=== PATIENT | male | born 1935 | race Caucasian/White ===

== ENCOUNTER 2019-04-28 09:01 | Inpatient (IN) ==
[2019-04-28] MEDS ORDERED: ONDANSETRON 4 MG/2 ML VIAL IV PRN (12:33)
[2019-04-28] MEDS ORDERED: ACETAMINOPHEN 325 MG TABLET PO PRN (12:33)
[2019-04-28] MEDS ORDERED: DOCUSATE SODIUM 100 MG CAPSULE PO PRN (12:33)
[2019-04-28] MEDS ORDERED: ALBUTEROL/IPRATROPIUM 3 ML NEB RESP TX PRN (12:33)
[2019-04-28 13:48] LABS: Risk Ratio 3.58; Thyroid Stimulating Hormone 2.06 uIU/ml (0.358-3.74); VLDL CHOLESTEROL 15.4 MG/DL
[2019-04-28] MEDS ORDERED: FUROSEMIDE 40 MG/4 ML VIAL IV ONE (14:14)
[2019-04-28 14:15] LABS: Troponin I < 0.015 NG/ML (0.00-0.045)
[2019-04-28] MEDS ORDERED: LIDOCAINE 1% 20 ML VIAL MISC INJ ONE (15:01)
[2019-04-28 15:38] LABS: Apearance,Urine CLEAR (Clear); Bilirubin,Urine Negative (Negative); Blood, Urine Negative (Negative); Glucose,Urine (UA) Negative (Negative); Ketones,Urine 5 mg/dL (Negative); Mucus,Urine Occasional /LPF (Occasional); Nitrite,Urine Negative (Negative); Protein,Urine Negative; RBC,Urine 1 /HPF (0-4); Squamous Epithelial Cell,Urine Occasional /HPF (0-10); Urine Color Yellow (Yellow); Urine Specific Gravity > 1.060 (1.001-1.035); Urine Urobilinogen < 2.0 EU/DL (0.2-1.0); WBC,Urine <1 /HPF (0-6)
[2019-04-28] MEDS: MONTELUKAST 10 MG TABLET PO SCH (17:01)
[2019-04-28] MEDS: CLINDAMYCIN INJ 300 MG in PREMIX 1 EACH IV SCH ×2 (18:11→22:46)
[2019-04-28 18:33] LABS: Total Protein,Body Fluid 3.9 G/DL
[2019-04-28] MEDS: PIPERACILLIN/TAZOBACTAM 3,375 MG in SODIUM CHLORIDE 0.9% 100 ML IV SCH (18:49)
[2019-04-28 18:51] LABS: Eosinophils,Pleural Fluid 6 %; Lymphocytes,Pleural Fluid 80 %; Monocytes,Pleural Fluid 2 %; Neutrophils,Pleural Fluid 12 %
[2019-04-28 18:53] LABS: RBC,Pleural Fluid 800 T/CUMM
[2019-04-28] MEDS: ALBUTEROL/IPRATROPIUM 3 ML NEB RESP TX SCH (19:30)
[2019-04-28] MEDS: BUDESONIDE/FORMOTEROL 160-4.5 INHALER 6 GM INH SCH (20:22)
[2019-04-29] MEDS: ALBUTEROL/IPRATROPIUM 3 ML NEB RESP TX SCH ×4 (01:25→19:30)
[2019-04-29] MEDS: PIPERACILLIN/TAZOBACTAM 3,375 MG in SODIUM CHLORIDE 0.9% 100 ML IV SCH ×3 (03:00→18:17)
[2019-04-29 05:40] LABS: Basophils # 0.1 10*3/uL (0.0-0.2); Basophils % 0.5 % (0.0-0.8); Eosinophils # 0.2 10*3/uL (0.0-0.87); Eosinophils % 1.6 % (0.00-10.9); Hematocrit 38.5 VOL% (42.0-52.0); Hemoglobin 12.4 GM/DL (14.0-18.0); Immature Granulocytes % 2.1 %; Immature Granulocytes Absolute 0.29 #; Lymphocytes # 1.6 10*3/uL (1.4-4.0); Lymphocytes % 11.6 % (21.2-54.2); Mean Corpuscular HGB Conc 32.2 GM/DL (32-36); Mean Corpuscular Volume 86.5 FL (87-102); Mean Platelet Volume 9.4 FL (9.6-12.0); Monocytes % 9.9 % (1.7-12.7); Neutrophils % 74.3 % (38.7-73.9); Platelet Count 497 T/CUMM (130-400); Red Blood Count 4.45 MC/CUMM (3.8-5.5); Red Cell Distribution Width 13.7 % (9.3-17.3)
[2019-04-29 06:07] LABS: Calcium 8.7 MG/DL (8.5-10.1); Osmolality,Calculated 276.8 MOS/KG (273-304)
[2019-04-29 08:55] LABS: Total Protein 6.6 G/DL (6.4-8.3)
[2019-04-29] MEDS: BUDESONIDE/FORMOTEROL 160-4.5 INHALER 6 GM INH SCH (09:50)
[2019-04-29] MEDS: ASPIRIN EC 81 MG TABLET PO SCH (09:51)
[2019-04-29] MEDS: CLINDAMYCIN INJ 300 MG in PREMIX 1 EACH IV SCH ×3 (09:51→22:25)
[2019-04-29] MEDS: MONTELUKAST 10 MG TABLET PO SCH (09:51)
[2019-04-29] MEDS: PANTOPRAZOLE 40 MG TABLET PO SCH (09:51)
[2019-04-29] MEDS: amLODIPine 10 MG TABLET PO SCH (09:51)
[2019-04-29] MEDS: METOPROLOL TARTRATE 25 MG TABLET PO SCH ×2 (12:08→21:33)
[2019-04-29] MEDS: ENOXAPARIN 30 MG/0.3 ML SYRINGE SUBCUT SCH (14:35)
[2019-04-29 16:59] LABS: Troponin I < 0.015 NG/ML (0.00-0.045)
[2019-04-30] MEDS: ALBUTEROL/IPRATROPIUM 3 ML NEB RESP TX SCH ×4 (00:11→19:53)
[2019-04-30] MEDS: CLINDAMYCIN INJ 300 MG in PREMIX 1 EACH IV SCH ×4 (03:00→23:00)
[2019-04-30] MEDS: PIPERACILLIN/TAZOBACTAM 3,375 MG in SODIUM CHLORIDE 0.9% 100 ML IV SCH ×3 (03:30→18:57)
[2019-04-30 04:25] LABS: Basophils # 0.1 10*3/uL (0.0-0.2); Basophils % 0.6 % (0.0-0.8); Eosinophils # 0.5 10*3/uL (0.0-0.87); Eosinophils % 3.4 % (0.00-10.9); Hematocrit 36.6 VOL% (42.0-52.0); Hemoglobin 11.5 GM/DL (14.0-18.0); Immature Granulocytes % 2.8 %; Immature Granulocytes Absolute 0.37 #; Lymphocytes # 1.9 10*3/uL (1.4-4.0); Lymphocytes % 13.9 % (21.2-54.2); Mean Corpuscular HGB Conc 31.4 GM/DL (32-36); Mean Corpuscular Volume 86.7 FL (87-102); Mean Platelet Volume 9.9 FL (9.6-12.0); Monocytes % 10.5 % (1.7-12.7); Neutrophils % 68.8 % (38.7-73.9); Platelet Count 520 T/CUMM (130-400); Red Blood Count 4.22 MC/CUMM (3.8-5.5); Red Cell Distribution Width 13.7 % (9.3-17.3); White Blood Count 13.4 T/CUMM (4-12)
[2019-04-30 04:42] LABS: Calcium 8.4 MG/DL (8.5-10.1); Osmolality,Calculated 276.8 MOS/KG (273-304)
[2019-04-30] MEDS: BUDESONIDE/FORMOTEROL 160-4.5 INHALER 6 GM INH SCH ×4 (05:12→21:35)
[2019-04-30] MEDS: METOPROLOL TARTRATE 25 MG TABLET PO SCH ×2 (08:20→21:39)
[2019-04-30] MEDS: ASPIRIN EC 81 MG TABLET PO SCH (08:20)
[2019-04-30] MEDS: amLODIPine 10 MG TABLET PO SCH (08:20)
[2019-04-30] MEDS: PANTOPRAZOLE 40 MG TABLET PO SCH (08:20)
[2019-04-30] MEDS: MONTELUKAST 10 MG TABLET PO SCH (08:20)
[2019-04-30] MEDS: ENOXAPARIN 30 MG/0.3 ML SYRINGE SUBCUT SCH (14:40)
[2019-05-01] MEDS: ALBUTEROL/IPRATROPIUM 3 ML NEB RESP TX SCH ×4 (00:51→19:20)
[2019-05-01] MEDS: CLINDAMYCIN INJ 300 MG in PREMIX 1 EACH IV SCH ×4 (02:45→22:35)
[2019-05-01] MEDS: PIPERACILLIN/TAZOBACTAM 3,375 MG in SODIUM CHLORIDE 0.9% 100 ML IV SCH ×3 (03:15→18:34)
[2019-05-01 05:16] LABS: Basophils # 0.1 10*3/uL (0.0-0.2); Basophils % 0.7 % (0.0-0.8); Eosinophils # 0.4 10*3/uL (0.0-0.87); Eosinophils % 3.5 % (0.00-10.9); Hematocrit 38.2 VOL% (42.0-52.0); Hemoglobin 12.4 GM/DL (14.0-18.0); Immature Granulocytes % 3.4 %; Immature Granulocytes Absolute 0.42 #; Lymphocytes # 1.8 10*3/uL (1.4-4.0); Lymphocytes % 14.4 % (21.2-54.2); Mean Corpuscular HGB Conc 32.5 GM/DL (32-36); Mean Platelet Volume 9.4 FL (9.6-12.0); Monocytes % 10.3 % (1.7-12.7); Neutrophils % 67.7 % (38.7-73.9); Platelet Count 520 T/CUMM (130-400); Red Blood Count 4.44 MC/CUMM (3.8-5.5); Red Cell Distribution Width 13.6 % (9.3-17.3); White Blood Count 12.4 T/CUMM (4-12)
[2019-05-01 05:35] LABS: Calcium 8.7 MG/DL (8.5-10.1)
[2019-05-01] MEDS: METOPROLOL TARTRATE 25 MG TABLET PO SCH ×2 (09:26→21:52)
[2019-05-01] MEDS: MONTELUKAST 10 MG TABLET PO SCH (09:26)
[2019-05-01] MEDS: amLODIPine 10 MG TABLET PO SCH (09:26)
[2019-05-01] MEDS: ASPIRIN EC 81 MG TABLET PO SCH (09:26)
[2019-05-01] MEDS: PANTOPRAZOLE 40 MG TABLET PO SCH (09:26)
[2019-05-01] MEDS: ENOXAPARIN 30 MG/0.3 ML SYRINGE SUBCUT SCH (14:32)
[2019-05-01] MEDS: BUDESONIDE/FORMOTEROL 160-4.5 INHALER 6 GM INH SCH (21:53)
[2019-05-02] MEDS: ALBUTEROL/IPRATROPIUM 3 ML NEB RESP TX SCH ×4 (00:10→19:29)
[2019-05-02] MEDS: CLINDAMYCIN INJ 300 MG in PREMIX 1 EACH IV SCH ×4 (02:35→22:32)
[2019-05-02] MEDS: PIPERACILLIN/TAZOBACTAM 3,375 MG in SODIUM CHLORIDE 0.9% 100 ML IV SCH ×3 (03:41→18:27)
[2019-05-02] MEDS: PANTOPRAZOLE 40 MG TABLET PO SCH (08:39)
[2019-05-02] MEDS: amLODIPine 10 MG TABLET PO SCH (08:39)
[2019-05-02] MEDS: ASPIRIN EC 81 MG TABLET PO SCH (08:39)
[2019-05-02] MEDS: MONTELUKAST 10 MG TABLET PO SCH (08:39)
[2019-05-02] MEDS: METOPROLOL TARTRATE 25 MG TABLET PO SCH ×2 (08:39→20:43)
[2019-05-02] MEDS: BUDESONIDE/FORMOTEROL 160-4.5 INHALER 6 GM INH SCH ×2 (10:27→20:44)
[2019-05-02] MEDS: ALBUTEROL 0.4 MG/ML 30 ML/BOTTLE PO SCH ×2 (11:34→20:42)
[2019-05-02 13:21] LABS: Mycoplasma pneumoniae Ab, IgG Positive (Negative); Mycoplasma pneumoniae Ab, IgM Reactive (Negative)
[2019-05-02] MEDS: ENOXAPARIN 40 MG/0.4 ML SYRINGE SUBCUT SCH (14:42)
[2019-05-03] MEDS: ALBUTEROL/IPRATROPIUM 3 ML NEB RESP TX SCH ×4 (00:20→19:28)
[2019-05-03] MEDS: CLINDAMYCIN INJ 300 MG in PREMIX 1 EACH IV SCH ×4 (02:38→20:38)
[2019-05-03] MEDS: PIPERACILLIN/TAZOBACTAM 3,375 MG in SODIUM CHLORIDE 0.9% 100 ML IV SCH ×3 (04:30→19:44)
[2019-05-03 05:50] LABS: Basophils # 0.1 10*3/uL (0.0-0.2); Basophils % 0.6 % (0.0-0.8); Eosinophils # 0.3 10*3/uL (0.0-0.87); Eosinophils % 2.3 % (0.00-10.9); Hematocrit 37.5 VOL% (42.0-52.0); Immature Granulocytes % 2.8 %; Immature Granulocytes Absolute 0.34 #; Lymphocytes # 1.4 10*3/uL (1.4-4.0); Lymphocytes % 11.5 % (21.2-54.2); Mean Corpuscular Volume 86.2 FL (87-102); Mean Platelet Volume 9.1 FL (9.6-12.0); Monocytes % 11.1 % (1.7-12.7); Neutrophils % 71.7 % (38.7-73.9); Platelet Count 499 T/CUMM (130-400); Red Blood Count 4.35 MC/CUMM (3.8-5.5); Red Cell Distribution Width 13.5 % (9.3-17.3)
[2019-05-03 06:00] LABS: PT Patient Result 10.5 SECS (9.6-12.2); Partial Thromboplastin Time 27.8 SECS (20.8-36.0)
[2019-05-03 06:14] LABS: Calcium 8.6 MG/DL (8.5-10.1); Osmolality,Calculated 274.7 MOS/KG (273-304)
[2019-05-03] MEDS ORDERED: diphenhydrAMINE 50 MG/1 ML VIAL IM ONE (08:00)
[2019-05-03] MEDS ORDERED: BENZONATATE 100 MG CAPSULE PO ONE (08:00)
[2019-05-03] MEDS ORDERED: MEPERIDINE 50 MG/1 ML VIAL IM ONE (08:00)
[2019-05-03] MEDS ORDERED: LIDOCAINE 1% 20 ML VIAL MISC INJ ONE (08:30)
[2019-05-03] MEDS ORDERED: LIDOCAINE 2% VISCOUS 100 ML BOTTLE SWISH/SPIT ONE (08:30)
[2019-05-03] MEDS ORDERED: LIDOCAINE 2% 20 ML VIAL RESP TX ONE (08:30)
[2019-05-03] MEDS: AZITHROMYCIN 250 MG TABLET PO SCH (13:40)
[2019-05-03] MEDS: ASPIRIN EC 81 MG TABLET PO SCH (13:40)
[2019-05-03] MEDS: METOPROLOL TARTRATE 25 MG TABLET PO SCH ×2 (13:40→21:14)
[2019-05-03] MEDS: MONTELUKAST 10 MG TABLET PO SCH (13:41)
[2019-05-03] MEDS: amLODIPine 10 MG TABLET PO SCH (13:41)
[2019-05-03] MEDS: PANTOPRAZOLE 40 MG TABLET PO SCH (13:41)
[2019-05-03] MEDS: ALBUTEROL 0.4 MG/ML 30 ML/BOTTLE PO SCH ×2 (13:43→21:15)
[2019-05-03] MEDS: BUDESONIDE/FORMOTEROL 160-4.5 INHALER 6 GM INH SCH ×2 (13:46→21:15)
[2019-05-03] MEDS: ENOXAPARIN 40 MG/0.4 ML SYRINGE SUBCUT SCH (16:45)
[2019-05-04] MEDS: CLINDAMYCIN INJ 300 MG in PREMIX 1 EACH IV SCH ×4 (01:17→21:50)
[2019-05-04] MEDS: PIPERACILLIN/TAZOBACTAM 3,375 MG in SODIUM CHLORIDE 0.9% 100 ML IV SCH ×3 (01:53→18:19)
[2019-05-04] MEDS: ALBUTEROL/IPRATROPIUM 3 ML NEB RESP TX SCH ×4 (02:24→19:59)
[2019-05-04 05:07] LABS: Basophils # 0.1 10*3/uL (0.0-0.2); Basophils % 0.5 % (0.0-0.8); Eosinophils # 0.2 10*3/uL (0.0-0.87); Eosinophils % 1.7 % (0.00-10.9); Hematocrit 38.7 VOL% (42.0-52.0); Hemoglobin 12.3 GM/DL (14.0-18.0); Immature Granulocytes % 2.2 %; Immature Granulocytes Absolute 0.29 #; Lymphocytes # 1.6 10*3/uL (1.4-4.0); Lymphocytes % 12.3 % (21.2-54.2); Mean Corpuscular HGB Conc 31.8 GM/DL (32-36); Mean Corpuscular Volume 86.4 FL (87-102); Mean Platelet Volume 9.5 FL (9.6-12.0); Monocytes % 9.4 % (1.7-12.7); Neutrophils % 73.9 % (38.7-73.9); Platelet Count 542 T/CUMM (130-400); Red Blood Count 4.48 MC/CUMM (3.8-5.5); Red Cell Distribution Width 13.6 % (9.3-17.3); White Blood Count 13.1 T/CUMM (4-12)
[2019-05-04 05:32] LABS: Calcium 8.1 MG/DL (8.5-10.1); Osmolality,Calculated 268.2 MOS/KG (273-304)
[2019-05-04] MEDS: PANTOPRAZOLE 40 MG TABLET PO SCH (08:31)
[2019-05-04] MEDS: amLODIPine 10 MG TABLET PO SCH (08:31)
[2019-05-04] MEDS: MONTELUKAST 10 MG TABLET PO SCH (08:31)
[2019-05-04] MEDS: ASPIRIN EC 81 MG TABLET PO SCH (08:31)
[2019-05-04] MEDS: METOPROLOL TARTRATE 25 MG TABLET PO SCH ×2 (08:31→20:57)
[2019-05-04] MEDS: ALBUTEROL 0.4 MG/ML 30 ML/BOTTLE PO SCH ×2 (08:32→20:57)
[2019-05-04] MEDS: BUDESONIDE/FORMOTEROL 160-4.5 INHALER 6 GM INH SCH ×2 (10:25→20:57)
[2019-05-04] MEDS: ENOXAPARIN 40 MG/0.4 ML SYRINGE SUBCUT SCH (14:48)
[2019-05-05] MEDS: CLINDAMYCIN INJ 300 MG in PREMIX 1 EACH IV SCH ×2 (01:18→08:27)
[2019-05-05] MEDS: ALBUTEROL/IPRATROPIUM 3 ML NEB RESP TX SCH (01:42)
[2019-05-05] MEDS: PIPERACILLIN/TAZOBACTAM 3,375 MG in SODIUM CHLORIDE 0.9% 100 ML IV SCH (01:58)
[2019-05-05] MEDS: BUDESONIDE/FORMOTEROL 160-4.5 INHALER 6 GM INH SCH (08:27)
[2019-05-05] MEDS: ALBUTEROL 0.4 MG/ML 30 ML/BOTTLE PO SCH (08:27)
[2019-05-05] MEDS: AZITHROMYCIN 250 MG TABLET PO SCH (08:28)
[2019-05-05] MEDS: PANTOPRAZOLE 40 MG TABLET PO SCH (08:28)
[2019-05-05] MEDS: MONTELUKAST 10 MG TABLET PO SCH (08:28)
[2019-05-05] MEDS: amLODIPine 10 MG TABLET PO SCH (08:28)
[2019-05-05] MEDS: ASPIRIN EC 81 MG TABLET PO SCH (08:28)
[2019-05-05] MEDS: METOPROLOL TARTRATE 25 MG TABLET PO SCH (08:28)
[2019-05-05 11:30] VITALS: BP 113/67
== END 2019-05-05 12:05 | disposition home health service (06) ==
LOC: N.5E 10:53 → SUATTDRO 10:53 → N.TELEN 04-29 12:40
PROVIDERS: ADMIT Internal Medicine; ATTEND Internal Medicine

== ENCOUNTER 2021-04-27 17:56 | Inpatient (IN) ==
[2021-04-27] MEDS ORDERED: methylPREDNISolone SOD SUC 125 MG/2 ML VIAL IV STA (18:40)
[2021-04-27] MEDS ORDERED: MORPHINE 2 MG/1 ML SYRINGE IV STA (18:40)
[2021-04-27] MEDS ORDERED: FUROSEMIDE 100 MG/10 ML VIAL IV STA (18:40)
[2021-04-27 18:52] LABS: Basophils # 0.1 10*3/uL (0.0-0.2); Basophils % 0.6 % (0.0-0.8); Eosinophils # 0.3 10*3/uL (0.0-0.87); Hematocrit 40.6 VOL% (42.0-52.0); Hemoglobin 13.4 GM/DL (14.0-18.0); Immature Granulocytes % 1.7 %; Immature Granulocytes Absolute 0.21 #; Lymphocytes # 0.9 10*3/uL (1.4-4.0); Lymphocytes % 7.4 % (21.2-54.2); Mean Corpuscular Volume 92.3 FL (87-102); Mean Platelet Volume 9.4 FL (9.6-12.0); Monocytes % 8.5 % (1.7-12.7); Neutrophils % 79.8 % (38.7-73.9); Platelet Count 331 T/CUMM (130-400); Red Cell Distribution Width 13.8 % (9.3-17.3); White Blood Count 12.4 T/CUMM (4-12)
[2021-04-27 19:00] LABS: INR 1.1; PT Patient Result 12.1 SECS (10.5-12.0)
[2021-04-27] MEDS ORDERED: ALBUTEROL NEB SOLN 5 MG/ML 20 ML/BOTTLE CONT NEB SCH (19:00)
[2021-04-27 19:06] LABS: ABG Base Excess 0.5 MMOL/L (-2.5-2.5); ABG HCO3 24.8 MMOL/L (20-26); ABG Oxygen Saturation 92.3 % (95-100); ABG PCO2 27.4 MM HG (35-48); ABG PH 7.517 (7.35-7.45); ABG PO2 62.6 MM HG (80-95); ABG TCO2 19.3 MMOL/L (23-27)
[2021-04-27 19:16] LABS: Alanine Aminotransferase 66 U/L (16-61); Albumin 2.5 G/DL (3.4-5.0); Alkaline Phosphatase 70 U/L (45-117); Aspartate Amino Transferase 40 U/L (0-37); Blood Urea Nitrogen 26 MG/DL (7-18); Calcium 9.4 MG/DL (8.5-10.1); Carbon Dioxide 23 MMOL/L (21-32); Estimated Glom Filtration Rate 75 ML/MIN; Glucose 155 MG/DL (74-106); Osmolality,Calculated 286.4 MOS/KG (273-304); Potassium 3.8 MMOL/L (3.5-5.1); Sodium 140 MMOL/L (136-145); Total Protein 6.4 G/DL (6.4-8.2)
[2021-04-27 20:03] LABS: Bilirubin,Urine Negative (Negative); Blood, Urine Negative (Negative); Glucose,Urine (UA) Negative (Negative); Hyaline Casts,Urine 3 /LPF (0-3); Ketones,Urine Negative (Negative); Mucus,Urine Occasional /LPF (Occasional); Nitrite,Urine Negative (Negative); Protein,Urine Negative; Urine Appearance CLEAR (Clear); Urine Color Yellow (Yellow); Urine Specific Gravity 1.013 (1.001-1.035); Urine Urobilinogen < 2.0 EU/DL (0.2-1.0)
[2021-04-27] MEDS ORDERED: DEXTROSE 50% 25 GM/50 ML VIAL IV PRN ×2 (20:52)
[2021-04-27] MEDS ORDERED: ACETAMINOPHEN 325 MG TABLET PO PRN (20:52)
[2021-04-27] MEDS ORDERED: ONDANSETRON 4 MG/2 ML VIAL IV PRN (20:52)
[2021-04-27] MEDS ORDERED: GLUCAGON 1 MG VIAL IM PRN (20:52)
[2021-04-27] MEDS ORDERED: MORPHINE 2 MG/1 ML SYRINGE IV PRN (20:52)
[2021-04-27] MEDS: cefTRIAXone 1,000 MG in SODIUM CHLORIDE 0.9% 100 ML IV SCH (21:17)
[2021-04-27] MEDS: INSULIN REGULAR 100 UNIT/ML SUBCUT SCH (21:18)
[2021-04-27] MEDS: AZITHROMYCIN INJ 500 MG in SODIUM CHLORIDE 0.9% 250 ML IV SCH (22:36)
[2021-04-28] MEDS ORDERED: methylPREDNISolone SOD SUC 40 MG/1 ML VIAL ONE (00:22)
[2021-04-28] MEDS: methylPREDNISolone SOD SUC 40 MG/1 ML VIAL IV SCH ×3 (01:15→18:01)
[2021-04-28] MEDS: ALBUTEROL/IPRATROPIUM 3 ML NEB RESP TX SCH ×4 (05:19→20:05)
[2021-04-28 07:19] LABS: Basophils % 0.1 % (0.0-0.8); Hematocrit 40.3 VOL% (42.0-52.0); Immature Granulocytes % 1.2 %; Immature Granulocytes Absolute 0.12 #; Lymphocytes # 0.6 10*3/uL (1.4-4.0); Lymphocytes % 6.3 % (21.2-54.2); Mean Corpuscular HGB Conc 32.3 GM/DL (32-36); Mean Platelet Volume 9.3 FL (9.6-12.0); Monocytes % 2.3 % (1.7-12.7); Neutrophils % 90.1 % (38.7-73.9); Platelet Count 343 T/CUMM (130-400); Red Blood Count 4.38 MC/CUMM (3.8-5.5); Red Cell Distribution Width 13.6 % (9.3-17.3)
[2021-04-28] MEDS: INSULIN REGULAR 100 UNIT/ML SUBCUT SCH ×4 (07:57→20:21)
[2021-04-28 08:06] LABS: Albumin 2.4 G/DL (3.4-5.0); Bilirubin,Total 0.6 MG/DL (0.20-1.00); Calcium 8.9 MG/DL (8.5-10.1); Osmolality,Calculated 288.3 MOS/KG (273-304); Potassium 3.4 MMOL/L (3.5-5.1); Risk Ratio 2.81; Total Protein 6.6 G/DL (6.4-8.2); VLDL Cholesterol 11.4 MG/DL
[2021-04-28] MEDS: FAMOTIDINE 20 MG TABLET PO SCH (08:40)
[2021-04-28] MEDS: GABAPENTIN 100 MG CAPSULE PO SCH ×2 (08:40→20:21)
[2021-04-28] MEDS: CHOLECALCIFEROL 5,000 UNIT TABLET PO SCH (08:40)
[2021-04-28] MEDS: hydroCHLOROthiazide 25 MG TABLET PO SCH (08:40)
[2021-04-28] MEDS: MULTIVITAMIN (CENTRUM) TABLET PO SCH (08:40)
[2021-04-28] MEDS: ASPIRIN EC 81 MG TABLET PO SCH (08:40)
[2021-04-28] MEDS: ROSUVASTATIN 20 MG TABLET PO SCH (08:40)
[2021-04-28] MEDS: MONTELUKAST 10 MG TABLET PO SCH (08:41)
[2021-04-28] MEDS: carvediloL 25 MG TABLET PO SCH ×2 (08:41→20:21)
[2021-04-28] MEDS: SACUBITRIL/VALSARTAN 49-51 MG TABLET PO SCH ×2 (08:41→20:21)
[2021-04-28] MEDS: PANTOPRAZOLE 40 MG TABLET PO SCH (08:41)
[2021-04-28] MEDS: BUDESONIDE/FORMOTEROL 160-4.5 INHALER 6 GM INH SCH ×2 (08:43→20:22)
[2021-04-28] MEDS ORDERED: POTASSIUM CHLORIDE 20 MEQ TABLET PO ONE (12:31)
[2021-04-28] MEDS: FUROSEMIDE 20 MG/2 ML VIAL IV SCH (16:12)
[2021-04-28] MEDS: ENOXAPARIN 40 MG/0.4 ML SYRINGE SUBCUT SCH (18:01)
[2021-04-28] MEDS: TAMSULOSIN 0.4 MG CAPSULE PO SCH (20:21)
[2021-04-28] MEDS: cefTRIAXone 1,000 MG in SODIUM CHLORIDE 0.9% 100 ML IV SCH (20:22)
[2021-04-28] MEDS: AZITHROMYCIN INJ 500 MG in SODIUM CHLORIDE 0.9% 250 ML IV SCH (21:10)
[2021-04-29] MEDS: ALBUTEROL/IPRATROPIUM 3 ML NEB RESP TX SCH ×5 (01:45→19:15)
[2021-04-29] MEDS: methylPREDNISolone SOD SUC 40 MG/1 ML VIAL IV SCH ×3 (02:24→18:11)
[2021-04-29 05:50] LABS: Basophils % 0.1 % (0.0-0.8); Hematocrit 39.5 VOL% (42.0-52.0); Hemoglobin 12.9 GM/DL (14.0-18.0); Immature Granulocytes % 1.3 %; Immature Granulocytes Absolute 0.27 #; Lymphocytes # 0.8 10*3/uL (1.4-4.0); Lymphocytes % 3.9 % (21.2-54.2); Mean Corpuscular HGB Conc 32.7 GM/DL (32-36); Mean Corpuscular Volume 91.4 FL (87-102); Mean Platelet Volume 9.3 FL (9.6-12.0); Monocytes % 3.2 % (1.7-12.7); Neutrophils % 91.5 % (38.7-73.9); Platelet Count 357 T/CUMM (130-400); Red Blood Count 4.32 MC/CUMM (3.8-5.5); Red Cell Distribution Width 13.3 % (9.3-17.3); White Blood Count 20.5 T/CUMM (4-12)
[2021-04-29 06:18] LABS: Lymphocytes 6 % (20-55); Platelet Estimate Normal; Segmented Neutrophils 90 % (50-85); Total Cells Counted 100
[2021-04-29 06:30] LABS: Calcium 8.7 MG/DL (8.5-10.1); Osmolality,Calculated 285.7 MOS/KG (273-304)
[2021-04-29] MEDS ORDERED: POTASSIUM CHLORIDE 20 MEQ TABLET PO ONE (07:36)
[2021-04-29] MEDS: INSULIN REGULAR 100 UNIT/ML SUBCUT SCH ×4 (07:42→21:20)
[2021-04-29] MEDS: SACUBITRIL/VALSARTAN 49-51 MG TABLET PO SCH ×2 (08:41→21:20)
[2021-04-29] MEDS: CHOLECALCIFEROL 5,000 UNIT TABLET PO SCH (08:42)
[2021-04-29] MEDS: ROSUVASTATIN 20 MG TABLET PO SCH (08:42)
[2021-04-29] MEDS: PANTOPRAZOLE 40 MG TABLET PO SCH (08:42)
[2021-04-29] MEDS: MONTELUKAST 10 MG TABLET PO SCH (08:42)
[2021-04-29] MEDS: FAMOTIDINE 20 MG TABLET PO SCH (08:42)
[2021-04-29] MEDS: MULTIVITAMIN (CENTRUM) TABLET PO SCH (08:42)
[2021-04-29] MEDS: carvediloL 25 MG TABLET PO SCH ×2 (08:42→21:20)
[2021-04-29] MEDS: ASPIRIN EC 81 MG TABLET PO SCH (08:42)
[2021-04-29] MEDS: BUDESONIDE/FORMOTEROL 160-4.5 INHALER 6 GM INH SCH ×2 (08:43→21:20)
[2021-04-29] MEDS: FUROSEMIDE 20 MG/2 ML VIAL IV SCH ×2 (08:43→16:23)
[2021-04-29] MEDS: GABAPENTIN 100 MG CAPSULE PO SCH ×2 (08:43→21:20)
[2021-04-29] MEDS: hydroCHLOROthiazide 25 MG TABLET PO SCH (08:43)
[2021-04-29] MEDS: ENOXAPARIN 40 MG/0.4 ML SYRINGE SUBCUT SCH (18:11)
[2021-04-29] MEDS: ALBUTEROL 2 MG TABLET PO SCH (21:20)
[2021-04-29] MEDS: TAMSULOSIN 0.4 MG CAPSULE PO SCH (21:20)
[2021-04-29] MEDS: cefTRIAXone 1,000 MG in SODIUM CHLORIDE 0.9% 100 ML IV SCH (21:20)
[2021-04-29] MEDS: AZITHROMYCIN INJ 500 MG in SODIUM CHLORIDE 0.9% 250 ML IV SCH (22:05)
[2021-04-30] MEDS: ALBUTEROL/IPRATROPIUM 3 ML NEB RESP TX SCH ×4 (01:50→18:23)
[2021-04-30] MEDS: methylPREDNISolone SOD SUC 40 MG/1 ML VIAL IV SCH ×2 (02:02→09:20)
[2021-04-30 05:28] LABS: Basophils % 0.2 % (0.0-0.8); Hematocrit 40.5 VOL% (42.0-52.0); Hemoglobin 13.6 GM/DL (14.0-18.0); Immature Granulocytes % 1.6 %; Immature Granulocytes Absolute 0.32 #; Lymphocytes # 0.7 10*3/uL (1.4-4.0); Lymphocytes % 3.6 % (21.2-54.2); Mean Corpuscular HGB Conc 33.6 GM/DL (32-36); Mean Corpuscular Volume 91.2 FL (87-102); Mean Platelet Volume 9.5 FL (9.6-12.0); Monocytes % 2.9 % (1.7-12.7); Neutrophils % 91.7 % (38.7-73.9); Platelet Count 351 T/CUMM (130-400); Red Blood Count 4.44 MC/CUMM (3.8-5.5); Red Cell Distribution Width 13.4 % (9.3-17.3); White Blood Count 19.9 T/CUMM (4-12)
[2021-04-30 05:37] LABS: Calcium 8.6 MG/DL (8.5-10.1); Osmolality,Calculated 286.8 MOS/KG (273-304); Potassium 3.3 MMOL/L (3.5-5.1)
[2021-04-30 06:04] LABS: Band Neutrophils 1 % (0-10); Lymphocytes 2 % (20-55); Microcytosis 1+; Segmented Neutrophils 92 % (50-85); Total Cells Counted 100
[2021-04-30 06:05] LABS: Hypochromasia 1+
[2021-04-30] MEDS: INSULIN REGULAR 100 UNIT/ML SUBCUT SCH ×3 (07:10→16:01)
[2021-04-30] MEDS ORDERED: POTASSIUM CHLORIDE 20 MEQ TABLET PO ONE (07:47)
[2021-04-30] MEDS: MULTIVITAMIN (CENTRUM) TABLET PO SCH (08:37)
[2021-04-30] MEDS: FAMOTIDINE 20 MG TABLET PO SCH (08:37)
[2021-04-30] MEDS: ROSUVASTATIN 20 MG TABLET PO SCH (08:37)
[2021-04-30] MEDS: SACUBITRIL/VALSARTAN 49-51 MG TABLET PO SCH ×2 (08:37→23:26)
[2021-04-30] MEDS: PANTOPRAZOLE 40 MG TABLET PO SCH (08:37)
[2021-04-30] MEDS: CHOLECALCIFEROL 5,000 UNIT TABLET PO SCH (08:38)
[2021-04-30] MEDS: MONTELUKAST 10 MG TABLET PO SCH (08:39)
[2021-04-30] MEDS: hydroCHLOROthiazide 25 MG TABLET PO SCH (08:39)
[2021-04-30] MEDS: ALBUTEROL 2 MG TABLET PO SCH ×2 (08:40→23:27)
[2021-04-30] MEDS: GABAPENTIN 100 MG CAPSULE PO SCH ×2 (08:40→23:27)
[2021-04-30] MEDS: ASPIRIN EC 81 MG TABLET PO SCH (08:41)
[2021-04-30] MEDS: carvediloL 25 MG TABLET PO SCH ×2 (08:41→23:27)
[2021-04-30] MEDS: BUDESONIDE/FORMOTEROL 160-4.5 INHALER 6 GM INH SCH (08:42)
[2021-04-30] MEDS: FUROSEMIDE 20 MG/2 ML VIAL IV SCH ×2 (08:42→16:01)
[2021-04-30] MEDS: POTASSIUM CHLORIDE 20 MEQ TABLET PO SCH (08:43)
[2021-04-30] MEDS: ENOXAPARIN 40 MG/0.4 ML SYRINGE SUBCUT SCH (18:08)
[2021-04-30] MEDS: cefTRIAXone 1,000 MG in SODIUM CHLORIDE 0.9% 100 ML IV SCH (23:27)
[2021-04-30] MEDS: TAMSULOSIN 0.4 MG CAPSULE PO SCH (23:27)
[2021-05-01] MEDS: AZITHROMYCIN INJ 500 MG in SODIUM CHLORIDE 0.9% 250 ML IV SCH (00:10)
[2021-05-01] MEDS: INSULIN REGULAR 100 UNIT/ML SUBCUT SCH ×3 (00:12→12:33)
[2021-05-01] MEDS: BUDESONIDE/FORMOTEROL 160-4.5 INHALER 6 GM INH SCH ×2 (00:47→09:35)
[2021-05-01] MEDS: ALBUTEROL/IPRATROPIUM 3 ML NEB RESP TX SCH ×2 (01:31→07:13)
[2021-05-01 05:50] LABS: Basophils % 0.2 % (0.0-0.8); Hematocrit 40.1 VOL% (42.0-52.0); Hemoglobin 13.1 GM/DL (14.0-18.0); Immature Granulocytes % 2.2 %; Lymphocytes # 1.1 10*3/uL (1.4-4.0); Lymphocytes % 5.9 % (21.2-54.2); Mean Corpuscular HGB Conc 32.7 GM/DL (32-36); Mean Corpuscular Volume 90.9 FL (87-102); Mean Platelet Volume 9.4 FL (9.6-12.0); Monocytes % 7.9 % (1.7-12.7); Neutrophils % 83.8 % (38.7-73.9); Platelet Count 345 T/CUMM (130-400); Red Blood Count 4.41 MC/CUMM (3.8-5.5); Red Cell Distribution Width 13.4 % (9.3-17.3); White Blood Count 17.8 T/CUMM (4-12)
[2021-05-01 06:11] LABS: Calcium 8.5 MG/DL (8.5-10.1); Osmolality,Calculated 289.5 MOS/KG (273-304); Potassium 3.5 MMOL/L (3.5-5.1)
[2021-05-01] MEDS ORDERED: methylPREDNISolone 4 MG TABLET PO SCH (09:00)
[2021-05-01] MEDS: ALBUTEROL 2 MG TABLET PO SCH (09:33)
[2021-05-01] MEDS: SACUBITRIL/VALSARTAN 49-51 MG TABLET PO SCH (09:33)
[2021-05-01] MEDS: GABAPENTIN 100 MG CAPSULE PO SCH (09:33)
[2021-05-01] MEDS: carvediloL 25 MG TABLET PO SCH (09:34)
[2021-05-01] MEDS: ASPIRIN EC 81 MG TABLET PO SCH (09:34)
[2021-05-01] MEDS: FAMOTIDINE 20 MG TABLET PO SCH (09:34)
[2021-05-01] MEDS: POTASSIUM CHLORIDE 20 MEQ TABLET PO SCH (09:34)
[2021-05-01] MEDS: hydroCHLOROthiazide 25 MG TABLET PO SCH (09:34)
[2021-05-01] MEDS: MULTIVITAMIN (CENTRUM) TABLET PO SCH (09:34)
[2021-05-01] MEDS: CHOLECALCIFEROL 5,000 UNIT TABLET PO SCH (09:34)
[2021-05-01] MEDS: PANTOPRAZOLE 40 MG TABLET PO SCH (09:34)
[2021-05-01] MEDS: MONTELUKAST 10 MG TABLET PO SCH (09:34)
[2021-05-01] MEDS: ROSUVASTATIN 20 MG TABLET PO SCH (09:34)
[2021-05-01] MEDS: FUROSEMIDE 20 MG/2 ML VIAL IV SCH (09:34)
[2021-05-01] MEDS ORDERED: LEVOFLOXACIN 500 MG TABLET PO SCH (12:00)
[2021-05-01 13:58] VITALS: BP 106/64
== END 2021-05-01 13:57 | disposition home or self-care (01) | DRG 291 ==
LOC: EDUNIT# → EDBD → N.ED 17:56 → N.EDINP 20:53 → N.CC 21:55 → N.TELEN 04-30 17:07
PROVIDERS: ADMIT Internal Medicine; ATTEND Internal Medicine